=== PATIENT | female | born 2000 | race American Indian/Alaskan Native ===

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

== ENCOUNTER 2021-05-08 18:22 | Emergency (ER) | payer MEDICAID ==
[2021-05-08 18:37] VITALS: BP 118/79
== END 2021-05-08 20:40 | disposition left against medical advice (07) ==
LOC: ED 18:22
DX: O21.9 Vomiting of pregnancy, unspecified (principal); Z53.21 Procedure and treatment not carried out due to patient leaving prior to being seen by health care provider; Z3A.01 Less than 8 weeks gestation of pregnancy